=== PATIENT | male | born 1995 | race Caucasian/White ===

== ENCOUNTER 2018-03-19 21:33 | Day surgery (SDC) | payer OTHER ==
[~2018-03-19] VITALS: Ht 177.8 cm; Wt 71.8 kg
[2018-03-19] MEDS ORDERED: MORPHINE 4 MG/ML 1ML VIAL/SYRINGE (J2270) IV PRN (23:15)
[2018-03-19] MEDS ORDERED: ONDANSETRON 4MG/2ML VIAL (J2405) IV ONE (23:15)
[2018-03-19] MEDS ORDERED: NS 1,000 ML IV ONE (23:15)
[2018-03-19 23:29] LABS: BASO % 0.4 % (0.0-1.0); EOS # 0.1 10^3/uL (0.0-0.50); EOS % 1.2 % (0.0-3.0); HEMATOCRIT 45.3 % (42.0-52.0); HEMOGLOBIN 15.2 g/dl (13.5-17.5); LYMPH # 2.7 10^3/uL (1.5-6.5); LYMPH % 37.3 % (24.0-44.0); MEAN CORPUSCULAR HEMOGLOBIN 29.1 pg (27.0-33.0); MEAN CORPUSCULAR HGB CONC 33.6 g/dl (32.0-36.5); MEAN CORPUSCULAR VOLUME 86.8 fl (80.0-96.0); MONO # 0.6 10^3/uL (0.0-0.8); MONO % 7.7 % (0.0-5.0); NEUTROPHILS # 3.9 10^3/uL (1.8-7.7); NEUTROPHILS % 53.3 % (36.0-66.0); PLATELET COUNT, AUTOMATED 156 10^3/uL (150-450); RED BLOOD COUNT 5.22 10^6/uL (4.30-6.10); WHITE BLOOD COUNT 7.3 10^3/uL (4.0-10.0)
[2018-03-19 23:52] LABS: ALBUMIN 3.5 GM/DL (3.2-5.2); ALT/SGPT 16 U/L (12-78); BILIRUBIN,DIRECT 0.2 MG/DL (0.0-0.2); BILIRUBIN,TOTAL 0.5 MG/DL (0.2-1.0); BLOOD UREA NITROGEN 12 MG/DL (7-18); CALCIUM LEVEL 8.5 MG/DL (8.5-10.1); CARBON DIOXIDE LEVEL 30 MEQ/L (21-32); CHLORIDE LEVEL 108 MEQ/L (98-107); CREATININE FOR GFR 1.11 MG/DL (0.70-1.30); GLOMERULAR FILTRATION RATE > 60.0 (>60); GLUCOSE, FASTING 86 MG/DL (70-100); LIPASE 83 U/L (73-393); POTASSIUM SERUM 4.1 MEQ/L (3.5-5.1); SODIUM LEVEL 144 MEQ/L (136-145); TOTAL PROTEIN 6.7 GM/DL (6.4-8.2)
[2018-03-20] VITALS (8 sets, daily range): BP systolic 104–138; BP diastolic 49–70
[2018-03-20] MEDS ORDERED: ISOVUE-370 76% 100ML VIAL (Q9967) As Ordered ONE (00:23)
--- NOTE | 2018-03-20 01:07 | REPVR ---
EXAM: CT Abdomen and Pelvis With Intravenous Contrast EXAM DATE/TIME: 03/19/2018 11:06 PM CLINICAL HISTORY: 22 years old, male; Pain and signs and symptoms; Nausea and vomiting; Abdominal pain; Periumbilical; Additional info: Periumbilic pain/n/v TECHNIQUE: Axial computed tomography images of the abdomen and pelvis with intravenous contrast. All CT scans at this facility use at least one of these dose optimization techniques: automated exposure control; mA and/or kV adjustment per patient size (includes targeted exams where dose is matched to clinical indication); or iterative reconstruction. Coronal and sagittal reformatted images were created and reviewed. CONTRAST: 100 ml of ISOVUE 370 administered intravenously. COMPARISON: No relevant prior studies available. FINDINGS: LUNG BASES: No infiltrate or effusion. VASCULAR: Major vasculature is within normal limits. PERITONEAL : No free air. Trace amount of simple appearing free fluid within the pelvis. This is abnormal in a male patient. GI: No hiatal hernia. The stomach contains some fluid and gas. The stomach is not sufficiently distended for complete diagnostic evaluation by this exam. Nonspecific gas and fluid filled loops of small bowel noted within the abdomen and pelvis, up to 2.7 cm in diameter. No focal point of transition is seen. Appearance could be secondary to ileus, peristalsis or mild gastroenteritis. If there is possibility for developing obstruction, or small bowel follow-through for further assessment. Scattered fecal material and gas slightly distending portions of the colon and rectum could be correlated for mild constipation. No pericolonic inflammation seen. No evidence of acute diverticulitis. The appendix is dilated above normal limits, 9.8 mm in diameter. Trace amount of periappendiceal fluid is seen. Findings are consistent with mild acute appendicitis. No evidence of perforation/free air or drainable abscess seen. HEPATOBILIARY, PANCREAS, SPLEEN: The upper most aspect of the right hepatic dome is not included. Visualized sagittal hepatic length is 19.6 cm. No calcified gallstones or biliary dilation. No pancreatic inflammation. Spleen not enlarged. Small splenule's are noted. ADRENALS, KIDNEYS, BLADDER, RETROPERITONEAL: Adrenals within normal limits. No hydronephrosis. Symmetric renal enhancement. No perinephric stranding or fluid. No perivesical stranding. No bladder wall thickening. MUSCULOSKELETAL: No acute findings. IMPRESSION: Findings are consistent with mild uncomplicated acute appendicitis. Trace amount of free fluid within the pelvis. Other findings discussed above. Electronically signed by: Spencer Corona On 03/20/2018 01:07:17 AM
[2018-03-20] MEDS ORDERED: AMPICILLIN SOD/SULBACTAM SOD 3 GM in D5W MINI-BAG PLUS 100 ML IV ONE ×2 (01:30→01:45)
[2018-03-20] MEDS: LR 1,000 ML IV SCH ×3 (01:34→10:27)
[2018-03-20] MEDS ORDERED: MORPHINE 4 MG/ML 1ML VIAL/SYRINGE (J2270) IV PRN (01:45)
[2018-03-20] MEDS ORDERED: PERCOCET 5MG/325MG TAB PO PRN ×2 (01:45→20:15)
[2018-03-20] MEDS ORDERED: ACETAMINOPHEN TAB 650MG DOSE (2X325MG) PO PRN (01:45)
[2018-03-20] MEDS: AMPICILLIN SOD/SULBACTAM SOD 3 GM in D5W MINI-BAG PLUS 100 ML IV SCH ×3 (08:42→21:49)
[2018-03-20] MEDS: KETOROLAC 30 MG/ML VIAL (J1885) IV PRN (08:49)
--- NOTE | 2018-03-20 12:31 | HPEPDOC ---
General Surgery H&P Date of Admission Mar 20, 2018 Attending Physician: CANDY ARGUETA MD History and Physical CHIEF COMPLAINT: Periumbilical abdominal pain and vomiting HISTORY OF PRESENT ILLNESS: Patient presents to the emergency room. Complains of 1 day history of epigastric and periumbilical abdominal pain with associated nausea and vomiting. This was of sudden onset. He denies any prior episodes of similar symptoms. He denies any sick contacts. This started early on today and was having persistent periumbilical pain with nausea and vomiting and was sent home from work today. He denies any associated diarrhea. ALLERGIES: Please see below. HOME MEDICATIONS: Please see below. PAST MEDICAL HISTORY: Denies any chronic medical problems PAST SURGICAL HISTORY: None PERSONAL/SOCIAL HISTORY:Reports smoking REVIEW OF SYSTEMS: GENERAL: Denies chills, fatigue, fever, weight gain and weight loss. HEENT: Denies blurred vision and double vision. Denies ear symptoms. Denies hoarseness. NECK: Denies any neck pain. CARDIOVASCULAR: Denies chest pain and palpitations. MUSCULOSKELETAL: Denies arthralgias, back pain and thrombophlebitis. SKIN: Denies rash. NEUROLOGIC: Denies headache, stroke and transient ischemic attack. PSYCHIATRIC: Denies anxiety and depression. ENDOCRINE: Denies thyroid disease. HEMATOLOGY/ONCOLOGY: Denies any bleeding or clotting disorder. HEART: Denies any chest pains, palpitations, paroxysmal dyspnea, orthopnea. PULMONARY: Denies chronic cough, dyspnea and wheezing. GASTROINTESTINAL: Denies rectal bleeding, family history of colon cancer, constipation, diarrhea, dysphagia, heartburn and jaundice. GENITOURINARY: Denies dysuria, frequency, hematuria and nocturia. ENDOCRINE: Denies polydipsia, polyphagia, polyuria, heat or cold intolerance. INFECTIOUS: Denies any recent upper respiratory tract infection, UTI, need for use of antibiotics. NUTRITION: Reports good appetite. PHYSICAL EXAMINATION: VITAL SIGNS: Please see below. GENERAL APPEARANCE: Patient seen at bedside, appears comfortable. Awake, alert, oriented. HEENT: Normocephalic, atraumatic. [place] palpebral conjunctivae. Anicteric sclerae. Lips moist. CHEST: No chest wall abnormalities. Normal respiratory motion/effort. NECK: Supple. No thyromegaly. No lymphadenopathies. LUNGS: Lung sounds are clear to auscultation bilaterally. No wheezing appreciated. HEART: No chest wall abnormalities. Heart rate and rhythm are regular with no murmurs. ABDOMEN: Abdomen is flat soft, nondistended. No abdominal scars. Mild tenderness on palpation around the periumbilical area with minimal guarding. Minimal ten derness over the right lower quadrant area with no guarding. SKIN: Warm, moist. EXTREMITIES: Extremities have no deformities. No edema identified. NEUROLOGICAL: . ANCILLARIES: . LABORATORY DATA: Please see below. MICROBIOLOGY: Please see below. IMAGING: CT scan abdomen and pelvis with IV contrast The appendix is dilated above normal limits, 9.8 mm in diameter. Trace amount of periappendiceal fluid is seen. Findings are consistent with mild acute appendicitis. No evidence of perforation/free air or drainable abscess seen. IMPRESSION AND PLAN: Acute appendicitis with localized peritonitis History, clinical exam and imaging studies consistent with early acute appendicitis without any evidence of perforation. This seems to be an uncomplicated appendicitis. I discussed with the patient and his options for therapy which includes nonoperative treatment with IV antibiotics versus lapar oscopic appendectomy. States care remains laparoscopic appendectomy though data shows IV antibiotics may be effective in uncomplicated appendicitis with about 30% recurrence rate in the year. After full discussion, I have recommended for him to undergo laparoscopic appendectomy and patient has consented to the procedure. Vital Signs Vital Signs Date Time Temp Pulse Resp B/P (MAP) Pulse Ox O2 Delivery O2 Flow Rate FiO2 03/19/18 23:34 16 03/19/18 21:47 03/19/18 21:34 97.3 66 97 Room Air Laboratory Data Labs 24H Laboratory Tests 2 03/19/18 23:16: Immature Granulocyte % (Auto) 0.1, White Blood Count 7.3, Red Blood Count 5.22, Hemoglobin 15.2, Hematocrit 45.3, Mean Corpuscular Volume 86.8, Mean Corpuscular Hemoglobin 29.1, Mean Corpuscular Hemoglobin Concent 33.6, Red Cell Distribution Width 12.1, Platelet Count 156, Neutrophils (%) (Auto) 53.3, Lymphocytes (%) (Auto) 37.3, Monocytes (%) (Auto) 7.7H, Eosinophils (%) (Auto) 1.2, Basophils (%) (Auto) 0.4, Neutrophils # (Auto) 3.9, Lymphocytes # (Auto) 2.7, Monocytes # (Auto) 0.6, Eosinophils # (Auto) 0.1, Basophils # (Auto) 0.0, Nucleated Red Blood Cells % (auto) 0.0, Anion Gap 6L, Glomerular Filtration Rate > 60.0, Calcium Level 8.5, Aspartate Amino Transf (AST/SGOT) 19, Alanine Aminotransferase (ALT/SGPT) 16, Alkaline Phosphatase 62, Total Bilirubin 0.5, Direct Bilirubin 0.2, Total Protein 6.7, Albumin 3.5, Albumin/Globulin Ratio 1.09, Lipase 83 CBC/BMP Laboratory Tests 03/19/18 23:16 Red Blood Count 5.22, Mean Corpuscular Volume 86.8, Mean Corpuscular Hemoglobin 29.1, Mean Corpuscular Hemoglobin Concent 33.6, Red Cell Distribution Width 12.1, Neutrophils (%) (Auto) 53.3, Lymphocytes (%) (Auto) 37.3, Monocytes (%) (Auto) 7.7 H, Eosinophils (%) (Auto) 1.2, Basophils (%) (Auto) 0.4, Neutrophils # (Auto) 3.9, Lymphocytes # (Auto) 2.7, Monocytes # (Auto) 0.6, Eosinophils # (Auto) 0.1, Basophils # (Auto) 0.0 Home Medications No Active Prescriptions or Reported Meds Allergies Coded Allergies: No Known Allergies (Unverified , 03/19/18) CANDY ARGUETA MD Mar 20, 2018 01:42
[2018-03-20] MEDS ORDERED: LIDOCAINE 1% SDV INJ 30 ML VIAL As Ordered ONE (15:17)
[2018-03-20] MEDS ORDERED: BUPIVACAINE HCL 0.25% 30 ML VIAL As Ordered ONE (15:17)
[2018-03-20] MEDS ORDERED: fentaNYL 100 MCG/2 ML INJECTION (J3010) As Ordered ONE ×2 (18:10→19:07)
[2018-03-20] MEDS ORDERED: LIDOCAINE 2% INJ 100 MG/5 ML SDV (FOR ANES.) As Ordered ONE (18:10)
[2018-03-20] MEDS ORDERED: dexameTHASONE 4 MG/ML 1ML VIAL (J1100) As Ordered ONE (18:10)
[2018-03-20] MEDS ORDERED: MIDAZOLAM INJ 2 MG/2 ML VIAL (J2250) As Ordered ONE (18:10)
[2018-03-20] MEDS ORDERED: PROPOFOL 200 MG/20 ML VIAL As Ordered ONE (18:10)
[2018-03-20] MEDS ORDERED: ROCURONIUM BROMIDE 50 MG/5 ML VIAL As Ordered ONE ×2 (18:11→19:05)
[2018-03-20] MEDS ORDERED: ONDANSETRON 4MG/2ML VIAL (J2405) As Ordered ONE (18:23)
[2018-03-20] MEDS ORDERED: SUGAMMADEX SODIUM 500 MG/5 ML VIAL (BRIDION) As Ordered ONE (19:16)
[2018-03-20] MEDS ORDERED: KETOROLAC 60 MG/2 ML VIAL (J1885) As Ordered ONE (19:18)
--- NOTE | 2018-03-20 19:36 | ROOPDOC ---
[facility] Report Of Operation Report of Operation DATE OF PROCEDURE: 03/20/18 PREPROCEDURE DIAGNOSES: Early Acute Appendicitis. POSTPROCEDURE DIAGNOSES: Mild Early Acute Appendicitis, mild ileus PROCEDURE: Laparoscopic Appendectomy. SURGEON: Conor Whatley MD ANESTHESIA: General Anesthesia. ESTIMATED BLOOD LOSS: Approximately 10 mL. COMPLICATIONS: none. REMARKS: distended appendix, mild early vascular congestiion, no perforation, stool filled lumen. Mild distention of small bowel probably associated ileus, no free fluid. Normal appearing liver and gallbladder.. DESCRIPTION OF PROCEDURE: . Patient has been given a dose of Unasyn 3 gm IV q 6h perioperatively while awaiting availability of the operating room.Patient was brought to the operating room, placed supine on the table. Sequential compression device placed for DVT prophylaxis. General endotracheal anesthesia started. The abdomen prepped and draped in usual sterile fashion. After a surgical timeout, we began our surgery Entry into the abdomen done through an incision above the umbilicus. Veress needle inserted on a controlled fashion. Intra-abdominal placement confirmed with saline drop technique. CO2 insufflation started to a pressure of 15 mmHg. Using the same incision an 8 mm port was placed under direct vision of laparoscope. Insertion site was inspected for injury and none was found. He was placed on a Trendelenburg position the right side tilted to about 30 to allow for better visualization of the appendix. 2 5 mm working ports were placed at the suprapubic area and left lower quadrant area under direct vision. Operative findings: Patient small bowel is mildly distended consistent with probably mild ileus. No signs of any inflammation in the small bowel and visible portions of the colon. The liver are smooth in contour, gallbladder appears normal. The appendix was located along the right lateral sidewall with the whole of the appendix appearing mildly distended, fluid-filled, not really inflamed. The distal half appears so some mild vascular congestion. No perforations noted. No free fluid noted. He probably has 2 small bilateral indirect inguinal hernia. The appendix was located. The Surrounding bowels retracted away from the appendix. This was grasped to pull the base of the appendix into view. The mesoappendix was divided using Harmonic scalpel down to the base. 2 PDS Endoloo ps were placed to ligate the appendix at its base then divided with a Harmonic Scalpel the stump cauterized. Stump appears healthy. There was a small amount of liquid stool filling the lumen of the appendix visible. This was irrigated and suctioned off. Appendix was then delivered into an Endo Catch bag. After re- insufflation the surgical site was inspected for hemostasis. Surrounding areas of the abdomen and inspected for fluid collections or signs of injury. A 10 flat ANTONIO drain was left in place close to the abdomen initial stump for monitoring and for drainage of fluid irrigation. The abdomen was deflated. All ports removed. The umbilical fascial defect repaired with 0 Vicryl in a mattress fashion. All skin incisions closed with 4-0 Monocryl in a subcuticular fashion. Steri-Strips and gauze dressing used for wound coverage. Patient was promptly awake and extubated and brought to recovery room stable. All counts of sponges and instruments verified to be correct. CONOR WHATLEY MD Mar 20, 2018 19:36
[2018-03-20] MEDS ORDERED: NALOXONE INJ 0.4 MG/1 ML VIAL (J2310) As Ordered ONE (19:52)
[2018-03-20] MEDS ORDERED: METOCLOPRAMIDE INJ 10MG/2ML VIAL (J2765) IV PRN (20:15)
[2018-03-20] MEDS ORDERED: fentaNYL 100 MCG/2 ML INJECTION (J3010) IV PRN (20:15)
[2018-03-20] MEDS ORDERED: ONDANSETRON 4MG/2ML VIAL (J2405) IV PRN (20:15)
[2018-03-20] MEDS ORDERED: MORPHINE 10 MG/ML 1ML VIAL (J2270) IV PRN (20:15)
[2018-03-20] MEDS ORDERED: LR 1,000 ML IV SCH (20:15)
[2018-03-20] MEDS: PERCOCET 5MG/325MG TAB PO PRN (21:51)
[2018-03-21 00:50] VITALS: BP 118/55
[2018-03-21] MEDS: AMPICILLIN SOD/SULBACTAM SOD 3 GM in D5W MINI-BAG PLUS 100 ML IV SCH ×2 (02:56→08:06)
[2018-03-21] MEDS: LR 1,000 ML IV SCH (02:56)
[2018-03-21] MEDS: PERCOCET 5MG/325MG TAB PO PRN (02:57)
[2018-03-21 04:00] VITALS: BP 114/55
[2018-03-21] MEDS: KETOROLAC 30 MG/ML VIAL (J1885) IV PRN (04:40)
[2018-03-21 08:00] VITALS: BP 109/55
[2018-03-21] MEDS ORDERED: PERCOCET PO (08:55)
--- NOTE | 2018-03-21 08:59 | IPNPDOC ---
Subjective General Date/Time Seen The patient was seen on 03/21/18 at 08:57. Subject Chief Complaint/History The patient is a 22-year-old male admitted with a reason for visit of Acute Apendicitis. POD1 Laparoscopic Appendectomy Doing well, incisional pain minimal tolerating diet Current Medications Current Medications Current Medications Acetaminophen (Tylenol Tab) 650 mg Q4HP PRN PO MILD PAIN or TEMP > 101; Start 03/20/18 at 01:45 Ampicillin Sodium/ Sulbactam Sodium 3 gm/Dextrose 100 ml @ 200 mls/hr Q6H IV Last administered on 03/21/18at 08:06; Start 03/20/18 at 08:00 Fentanyl Citrate (Sublimaze) 25 mcg Q5MP PRN IV MODERATE PAIN (PS 4-7); Start 03/20/18 at 20:15; Stop 03/20/18 at 21:15; Status DC Home Med (Med Rec Complete!) ASDIRECTED XX ; Start 03/20/18 at 01:30; Stop 03/20/18 at 01:41; Status DC Ketorolac Tromethamine (ToRADol) 15 mg Q6HP PRN IV MILD/MODERATE PAIN (PS 1-7) Last administered on 03/21/18at 04:40; Start 03/20/18 at 01:45; Stop 03/25/18 at 01:44 Lactated Ringer's 1,000 ml @ 100 mls/hr Q10H IV Last administered on 03/20/18at 21:50; Start 03/20/18 at 20:15; Stop 03/20/18 at 21:15; Status DC Lactated Ringer's 1,000 ml @ 125 mls/hr Q8H IV Last administered on 03/21/18at 02:56; Start 03/20/18 at 01:34 Metoclopramide HCl (REGLAN INJection) 10 mg Q6HP PRN IV NAUSEA OR VOMITING; Start 03/20/18 at 20:15; Stop 03/20/18 at 21:15; Status DC Morphine Sulfate (Morphine Sulfate Inj) 2 mg Q5M PRN IV MODERATE/SEVERE PAIN (PS 5-10); Start 03/20/18 at 20:15; Stop 03/20/18 at 21:15; Status DC Morphine Sulfate (Morphine Sulfate Inj) 4 mg Q15M PRN IV MODERATE/SEVERE PAIN (PS 5-10) Last administered on 03/19/18at 23:23; Start 03/19/18 at 23:15 Morphine Sulfate (Morphine Sulfate Inj) 4 mg Q3H PRN IV SEVERE PAIN (PS 8-10); Start 03/20/18 at 01:45 Ondansetron HCl (ZOFRAN INJection) 4 mg Q4HP PRN IV NAUSEA OR VOMITING; Start 03/20/18 at 20:15; Stop 03/20/18 at 21:15; Status DC Oxycodone/ Acetaminophen (Percocet 5mg/ 325mg Tablet) 1 tab ASDIRECTED PRN PO MILD/MODERATE PAIN (PS 1-7); Start 03/20/18 at 20:15; Stop 03/20/18 at 21:15; Status DC Oxycodone/ Acetaminophen (Percocet 5mg/ 325mg Tablet) 1 tab Q4HP PRN PO MODERATE PAIN (PS 5-7) Last administered on 03/21/18at 02:57; Start 03/20/18 at 01:45 Oxycodone/ Acetaminophen (Percocet 5mg/ 325mg Tablet) 2 tab Q6HP PRN PO SEVERE PAIN (PS 8-10) Last administered on 03/21/18at 08:07; Start 03/20/18 at 01:45 Allergies Coded Allergies: No Known Allergies (Unverified , 03/19/18) Objective Physical Examination Examination GENERAL APPEARANCE:comfortable. SKIN: Warm and moist. HEENT: Normocephalic, atraumatic. [place] palpebral conjunctiva, anicteric sclerae. Lips and mucosa appear moist. NECK: Supple, no thyromegaly. No obvious jugular venous distention. LUNGS: Clear to auscultation bilaterally. No wheezing appreciated. HEART: No chest wall abnormalities. Regular rate and rhythm with no murmurs appreciated. ABDOMEN: Abdomen is flat, soft, nondistended. trocar sites (x3) dressing clean, dry, intact. Nontender on palpation. EXTREMITIES: Extremities have no deformities. No edema identified. Vital Signs Vital Signs Date Time Temp Pulse Resp B/P (MAP) Pulse Ox O2 Delivery O2 Flow Rate FiO2 03/21/18 08:07 16 03/21/18 08:00 97.7 50 109/55 (73) 95 Room Air 03/20/18 20:35 2 I&Os I&O- Last 24 Hours up to 6 AM 03/21/18 06:00 Intake Total 4375 ml Output Total 475 ml Balance 3900 ml Impression POD1 Laparoscopic Appendectomy early acute appendicitis OK to go home No need for antibiotics light activity x 2 weeks follow up with me Plan / VTE VTE Prophylaxis Ordered?: No VTE Exclusion Mechanical Proph: Low Risk for VTE CANDY ARGUETA MD Mar 21, 2018 08:59
== END 2018-03-21 10:35 | disposition home or self-care (01) ==
LOC: M ED 21:33 → M SDC 03-20 01:34 → M ED INP 03-20 01:35 → UNDOADMIN 03-20 01:35 → M PED 03-20 02:46 → M ED INP 03-20 02:46 → UNDODISIN 03-21 10:35 → M SDC 03-21 10:35
PROVIDERS: ATTEND Surgery
DX: K35.80 Unspecified acute appendicitis (principal); K56.7 Ileus, unspecified; Z72.0 Tobacco use
CPT/HCPCS: 44970; 74177; 80048; 80076; 83690; 85025; 88304; 96365; 96366; 96375; 96376; 99284; J1100; J1885; J2250; J2270; J2405; J3010; Q9967